=== PATIENT | male | born 1955 | race Caucasian/White ===

== ENCOUNTER 2023-03-09 01:34 | Emergency (ER) | payer BC, SELFPAY ==
--- NOTE | ~2023-03-09 | XR_ITS ---
EXAMINATION: XR FOOT, RIGHT CLINICAL INFORMATION: Pain and swelling. COMPARISON: None available. TECHNIQUE: 3 views of the right foot. FINDINGS: No evidence of acute fracture or subluxation. Findings include small marginal osteophytes of the calcaneocuboid, talonavicular and first tarsometatarsal joints. At the great toe, there is moderate loss of metatarsophalangeal joint space with osteophyte formation. No erosions or periostitis. A very small plantar calcaneal enthesophyte is present. Nonspecific soft tissue swelling throughout the foot without soft tissue gas or radiopaque foreign body. XR/XR foot RT min 3V IMPRESSION: * No acute osseous injury within the right foot. * Nonspecific soft tissue swelling is present. * Moderate osteoarthritis of the great toe metatarsophalangeal joint and mild osteoarthritis at a few other joints. * No radiographic evidence of osteomyelitis.
[2023-03-09 01:48] VITALS: BP 154/96; PULSE 112; O2SAT 96; BMI 35.9
[2023-03-09 02:00] VITALS: BP 124/74; PULSE 104; RESP 18; TEMP 36.8; O2SAT 95
--- OUTSIDE RECORDS SUMMARY | 2023-03-09 02:05 | XMS_ITS | Continuity of Care Document ---
Author Name Unknown Organization [facility] Address [address] [place] [address]- Care Team Providers Care Solderer Name Role Phone Marcelino Vogel MD Primary Care Physician [facility] Date[facility]): 12/30/20 - 01/29/21 [facility] [address] [place], [place] [address] Allergies, Adverse Reactions, Alerts No Known Medication Allergies Immunizations Given and Recorded Vaccine Date Status Refusal Reason pneumococcal 13-valent vaccine 1 12/15/20 Given SARS-CoV-2 (COVID-19) mRNA-1273 vaccine 10/22/20 R ecorded SARS-CoV-2 (COVID-19) mRNA-1273 vaccine 09/24/20 R ecorded influenza virus vaccine, inactivated 2 03/16/20 Re corded pneumococcal 23-valent vaccine 3 12/26/19 Given tetanus/diphtheria/pertussis, acel(Tdap) 4 09/18/19 Given 1Result Comment: [id number] given w/out incident 2Result Comment: done @ [facility] 3Early/Late Reason: Patient Not Available/Off Unit 4Result Comment: PT HANDLED PROCEDURE WELL WITH NO COMPLAINTS. PHYSICIAN GENERAL INTERNAL MEDICINE NDC: 80462-710-23 Medications aspirin 81 mg oral delayed release tablet 81 mg, 1, tablet, By Mouth, Daily, # 30 tablet, Refills 0, Maintenance, 09/18/19 13:18:00 EDT Start Date: 09/18/19 Status: Ordered atorvastatin 10 mg oral tablet 1 tablet = 10 mg, By Mouth, Daily, # 90 tablet, 1 Refills, Maintenance, 09/18/20 16:37:00 EDT, [id number], 175.26, cm, 05/19/20 10:55:00 EST, Height, 93.1, kg, 12/27/19 17:17:00 EDT, Dry Weight Start Date: 09/18/20 Stop Date: 03/17/21 Status: Ordered clobetasol 0.05% topical cream 1 application, Topically, 2 times a day, # 15 Gm, 0 Refills, Maintenance, 12/15/20 13:55:00 EDT, Cream, Partial fill upon patient request if the prescription is for a schedule II opioid drug. Start Date: 12/15/20 Status: Ordered furosemide 20 mg oral tablet 20 mg, 1, tablet, By Mouth, Daily, # 90 tablet, Refills 0, Maintenance, 05/19/20 10:25:00 EST, Partial fill upon patient request Start Date: 05/19/20 Stop Date: 08/17/20 Status: Ordered Metoprolol Tartrate 50 mg oral tablet 1.5 tablet = 75 mg, By Mouth, 2 times a day, # 60 tablet, 0 Refills, Maintenance, 01/07/20 15:06:00EDT, Tablet Start Date: 01/07/20 Stop Date: 02/06/20 Status: Ordered Problem List Condition Effective Dates Status Health Status Inform ant Family history of alcoholism in brother(Confirmed) Active Family history of alcoholism in mother(Confirmed) Active Aortic valve insufficiency(Confirmed) Active Aortic valve stenosis s/p AVR(Confirmed) Active Congestive heart failure(Confirmed) Active Diastolic dysfunctionm, Grad e 1(Confirmed) 1 01/24/20 Active History of alcohol abuse(Confirmed) Active History of aortic valve replacement(Confirmed) 2, 3 12/11/19 Active Hypercholesterolemia(Confirmed) 09/24/19 Active Hyperglycemia(Confirmed) 09/24/19 Active Obesity(Confirmed) Active Osteoarthritis of left knee(Confirmed) Active Psoriasis(Confirmed) Active 1Echo done at [facility] 221mm Inspiris Resilia (Bovine) Valve 3done at [place], [place]
--- OUTSIDE RECORDS SUMMARY | 2023-03-09 02:05 | XMS_ITS | Continuity of Care Document ---
Author Name Unknown Organization [facility] Address [address] [place] [address]- Care Team Providers Care Senior Cost Analyst Name Role Phone Jaspreet BELLE, Marcelino Primary Care Physician [facility]): 05/22/20 - 06/21/20 [facility] [address] [place], [place] [address] Allergies, Adverse Reactions, Alerts No Known Medication Allergies Immunizations Given and Recorded Vaccine Date Status Refusal Reason influenza virus vaccine, inactivated 1 03/16/20 Re corded pneumococcal 23-valent vaccine 2 12/26/19 Given tetanus/diphtheria/pertussis, acel(Tdap) 3 09/18/19 Given 1Result Comment: done @ [facility] 2Early/Late Reason: Patient Not Available/Off Unit 3Result Comment: PT HANDLED PROCEDURE WELL WITH NO COMPLAINTS. HAND SEWER NDC: 22239-844-51 Medications aspirin 81 mg oral delayed release tablet 81 mg, 1, tablet, By Mouth, Daily, # 30 tablet, Refills 0, Maintenance, 09/18/19 13:18:00 EDT Start Date: 09/18/19 Status: Ordered atorvastatin 10 mg oral tablet 1 tablet = 10 mg, By Mouth, Daily, # 30 tablet, 5 Refills, Maintenance, 03/22/20 16:37:00 EDT, [id number], 175.26, cm, 01/07/20 15:01:00 EDT, Height, 93.1, kg, 12/27/19 17:17:00 EDT, Dry Weight Start Date: 03/22/20 Stop Date: 09/18/20 Status: Ordered furosemide 20 mg oral tablet [...] knee(Confirmed) Active Psoriasis(Confirmed) Active 1Echo done at [facility] 221mm Inspiris Resilia (Bovine) Valve 3done at [place], [place]
--- OUTSIDE RECORDS SUMMARY | 2023-03-09 02:05 | XMS_ITS | Continuity of Care Document ---
Author Name Unknown Organization [facility] Address [address] [place] [address]- Care Team Providers Care Chemical Economist Name Role Phone Marcelino Vogel MD Primary Care Physician Encounter [facility] Date(s): 01/02/20 - 02/01/20 [facility] [address] [place] [address]- [facility] Allergies, Adverse Reactions, Alerts No Known Medication Allergies Immunizations Given and Recorded Vaccine Date Status Refusal Reason pneumococcal 23-valent vaccine 1 12/26/19 Given tetanus/diphtheria/pertussis, acel(Tdap) 2 09/18/19 Given 1Early/Late Reason: Patient Not Available/Off Unit 2Result Comment: PT HANDLED PROCEDURE WELL WITH NO COMPLAINTS. [place] ND: 27779-482-95 Medications aspirin 81 mg oral delayed release tablet 81 mg, 1, tablet, By Mouth, Daily, # 30 tablet, Refills 0, Maintenance, 09/18/19 13:18:00 EDT Start Date: 09/18/19 Status: Ordered atorvastatin 10 mg oral tablet 1 tablet = 10 mg, By Mouth, Daily, # 30 tablet, 5 Refills, Maintenance, 09/24/19 16:37:00 EDT Start Date: 09/24/19 Stop Date: 03/22/20 Status: Ordered furosemide 20 mg oral tablet 20 mg, 1, tablet, By Mouth, Daily, # 30 tablet, Refills 0, Tot. Refills 0, Maintenance, 01/01/20 11:03:00 EDT, Route to Pharmacy Electronically, [facility], 175.26, cm, 01/01/20 8:09:00EDT, Height, 93.1, kg, 12/27/19 17:17:00 EDT, Dry W... Start Date: 01/01/20 Status: Ordered Metoprolol Tartrate 50 mg oral tablet 1.5 tablet = 75 mg, By Mouth, 2 times a day, # 60 tablet, 0 Refills, Maintenance, 01/07/20 15:06:00EDT, Tablet Start Date: 01/07/20 Stop Date: 02/06/20 Status: Ordered traMADol 50 mg oral tablet 1 tablet = 50 mg, By Mouth, Every 4 hours, PRN as needed for pain, 0 Refills, Maintenance, 01/06/2015:08:00 EDT, Tablet Start Date: 01/07/20 Status: Ordered Problem List Condition Effective Dates Status Health Status Inform ant Family history of alcoholism in brother(Confirmed) Active Family history of alcoholism in mother(Confirmed) Active Aortic valve insufficiency(Confirmed) Active Aortic valve stenosis s/p AVR(Confirmed) Active Congestive heart failure(Confirmed) Active History of alcohol abuse(Confirmed) Active History of aortic valve replacement(Confirmed) 1, 2 12/11/19 Active Hypercholesterolemia(Confirmed) 09/24/19 Active Hyperglycemia(Confirmed) 09/24/19 Active Obesity(Confirmed) Active Osteoarthritis of left knee(Confirmed) Active Psoriasis(Confirmed) Active 121mm Inspiris Resilia (Bovine) Valve 2done at [place], [place]
--- OUTSIDE RECORDS SUMMARY | 2023-03-09 02:05 | XMS_ITS | Continuity of Care Document ---
Author Name Unknown Organization [facility] Address [address] [place] [address]- Care Team Providers Care Small Animal Veterinarian Name Role Phone Marcelino Vogel MD Primary Care Physician Encounter [facility] Date(s): 01/07/20 - 01/14/20 [facility] [address] [place] [address]- [facility] Encounter Diagnosis Pseudogout(Discharge Diagnosis) - 01/07/20 Attending Physician: Marcelino Vogel MD Allergies, Adverse Reactions, Alerts No Known Medication Allergies Immunizations Given and Recorded Vaccine Date Status Refusal Reason pneumococcal 23-valent vaccine 1 12/26/19 Given tetanus/diphtheria/pertussis, acel(Tdap) 2 09/18/19 Given 1Early/Late Reason: Patient Not Available/Off Unit 2Result Comment: PT HANDLED PROCEDURE WELL WITH NO COMPLAINTS. CASING IN LINE FEEDER NDC: 30860-239-87 Medications aspirin 81 mg oral delayed release [...] 01/01/20 11:03:00 EDT, Route to Pharmacy Electronically, [facility], 175.26, cm, 01/01/20 8:09:00EDT, Height, 93.1, [...] EDT, Tablet Start Date: 01/07/20 Status: Ordered Tylenol 325 mg oral tablet 650 mg, 2, tablet, By Mouth, Every 6 hours, PRN, # 120 tablet, Refills 0, Tot. Refills 0, Acute 01/31/20 12:00:00 EDT, for pain, 01/01/20 11:04:00 EDT, Route to Pharmacy Electronically, [facility], 175.26, cm, 01/01/20 8:09:00 EDT, Heigh... Start Date: 01/01/20 Stop Date: 01/31/20 Status: Ordered Problem List Condition Effective Dates [...] 121mm Inspiris Resilia (Bovine) Valve 2done at [facility], [place] Diagnosis Diagnosis Type Effective Dates Health Status Clini dean Service Informant Pseudogout Discharge Diagnosis 01/07/20 Vital Signs Most recent to oldest [Reference Range]: 1 Height 175.26 cm (01/07/20 3:01 PM) Weight 83.5 kg (01/07/20 3:01 PM) Oxygen Saturation [94-100 %] 99 % (01/07/20 3:01 PM) Pulse Rate [55-90 bpm] 99 bpm *H* (01/07/20 3:01 PM) Body Mass Index [18.5-24.99] 27.18 *H* (01/07/20 3:01 PM) Blood Pressure [90-138/55-84 mm Hg] 124/ 82mm Hg (01/07/20 3:01 PM) Temperature [96.8-100.4 DegF] 98.9 DegF (01/07/20 3:01 PM) Mode of Delivery (Oxygen) Room air (01/07/20 3:01 PM) Blood pressure sites Arm, left (01/07/20 3:01 PM) Temperature Route Temporal (01/07/20 3:01 PM)
--- OUTSIDE RECORDS SUMMARY | 2023-03-09 02:05 | XMS_ITS | Continuity of Care Document ---
Author Name Unknown Organization [facility] Address [address] [place] [address]- Care Team Providers Care Water Team Leader Name Role Phone Jaspreet BELLE, Marcelino Primary Care Physician [facility] Date(s): 05/23/20 - 06/22/20 [facility] [address] [place], [place] [address] Allergies, Adverse Reactions, Alerts No Known Medication Allergies Immunizations Given and Recorded Vaccine Date Status Refusal Reason influenza virus vaccine, inactivated 1 03/16/20 Re corded pneumococcal 23-valent vaccine 2 12/26/19 Given tetanus/diphtheria/pertussis, acel(Tdap) 3 09/18/19 Given 1Result Comment: done @ [facility] 2Early/Late Reason: Patient Not Available/Off Unit 3Result Comment: PT HANDLED PROCEDURE WELL WITH NO COMPLAINTS. MOTOR OPERATOR NDC: 47136-988-96 Medications aspirin 81 mg oral delayed release [...] knee(Confirmed) Active Psoriasis(Confirmed) Active 1Echo done at [facility] 221mm Inspiris Resilia (Bovine) Valve 3done at [place], [place]
--- OUTSIDE RECORDS SUMMARY | 2023-03-09 02:05 | XMS_ITS | Continuity of Care Document ---
Author Name Unknown Organization [facility] Address [address] [place] [address]- Care Team Providers Care Geriatric Social Worker Name Role Phone Marcelino Vogel MD Primary Care Physician [place] [facility] [place]20 - 02/07/20 [facility] [address] [place] [address]- [facility] Allergies, Adverse Reactions, Alerts No Known Medication Allergies Immunizations Given and Recorded Vaccine Date Status Refusal Reason pneumococcal 23-valent vaccine 1 12/26/19 Given tetanus/diphtheria/pertussis, acel(Tdap) 2 09/18/19 Given 1Early/Late Reason: Patient Not Available/Off Unit 2Result Comment: PT HANDLED PROCEDURE WELL WITH NO COMPLAINTS. GLASS PRODUCTS INSPECTOR NDC: 35777-092-23 Medications aspirin 81 mg oral delayed release [...] 01/01/20 11:03:00 EDT, Route to Pharmacy Electronically, [facility], 175.26, cm, 01/01/20 8:09:00EDT, [...] knee(Confirmed) Active Psoriasis(Confirmed) Active 1Echo done at [facility] 221mm Inspiris Resilia (Bovine) Valve 3done at [place], [place]
--- OUTSIDE RECORDS SUMMARY | 2023-03-09 02:05 | XMS_ITS | Continuity of Care Document ---
Author Name Unknown Organization [facility] Address [address] [place] [address]- Care Team Providers Care Labourers Name Role Phone Marcelino Vogel MD Primary Care Physician [place] [facility] 12/10/20 - 12/10/[address] [address]- Discharge Disposition: A-D/C Home Attending Physician: Ortiz Wen MD Admitting Physician: Ortiz Wen MD Referring Physician: Ortiz Wen MD Allergies, Adverse Reactions, Alerts No Known Medication Allergies Immunizations Given and Recorded Vaccine Date Status Refusal Reason influenza virus vaccine, inactivated 1 03/16/20 Re corded pneumococcal 23-valent vaccine 2 12/26/19 Given tetanus/diphtheria/pertussis, acel(Tdap) 3 09/18/19 Given 1Result Comment: done @ [facility] 2Early/Late Reason: Patient Not Available/Off Unit 3Result Comment: PT HANDLED PROCEDURE WELL WITH NO COMPLAINTS. PAPER TESTING SUPERVISOR NDC: 50419-759-95 Medications aspirin 81 mg oral delayed release [...] Date: 09/18/20 Stop Date: 03/17/21 Status: Ordered furosemide 20 mg oral tablet [...] Active Psoriasis(Confirmed) Active 1Echo done at [facility] 221mm Inspiris Resilia (Bovine) Valve 3done at [facility], [place] Vital Signs Most recent to oldest [Reference Range]: 1 2 3 Oxygen Saturation [94-100 %] 97 % (12/10/20 10:08 AM) 92 % *L* (12/10/20 10:00 AM) 98 % (12/10/20 8:58 AM) Pulse Rate [55-90 bpm] 90 bpm (12/10/20 8:58 AM) Blood Pressure [90-138/55-84 mm Hg] 108/68mm Hg (12/10/20 10:08 AM) 92/61mm Hg (12/10/20 10:00 AM) 148/80mm Hg *H* (12/10/20 8:58 AM) Respiratory Rate [16-30 br/min] 20 br/min (12/10/20 10:08 AM) 20 br/min (12/10/20 8:58 AM) Temperature [96.8-100.4 DegF] 98.2 DegF (12/10/20 8:58 AM) Mode of Delivery (Oxygen) Room air (12/10/20 10:08 AM) Room air (12/10/20 10:00 AM) Room air (12/10/20 8:58 AM) Blood pressure sites Arm, left (12/10/20 10:08 AM) Arm, left (12/10/20 10:00 AM) Arm, left (12/10/20 8:58 AM) Temperature Route Tympanic (12/10/20 8:58 AM) Dry Weight 91 kg (12/10/20 8:58 AM)
--- OUTSIDE RECORDS SUMMARY | 2023-03-09 02:05 | XMS_ITS | Continuity of Care Document ---
Author Name Unknown Organization [facility] Reginald lakeisha Address [address] [address]- Care Team Providers Care Client Professional Name Role Phone Oscar Booker MD Primary Care Physician [phone] [place] [facility] [id number] Date(s): 08/15/19 - 08/25/19 [facility] Card[facility] Surgery [address] [address]- [facility] Attending Physician: John Guillory Admitting Physician: John Guillory Referring Physician: John Guillory
--- OUTSIDE RECORDS SUMMARY | 2023-03-09 02:05 | XMS_ITS | Continuity of Care Document ---
Author Name Unknown Organization [facility] Address [address] [place] [address]- Care Team Providers Care Stonehand Name Role Phone Jaspreet BELLE, Marcelino Primary Care Physician [facility] Date(s): 07/24/21 - 08/23/21 [facility] [address] [place], [place] [address] Allergies, Adverse Reactions, Alerts No Known Medication Allergies Immunizations Given and Recorded Vaccine Date Status Refusal Reason SARS-CoV-2 (COVID-19) mRNA-1273 vaccine 06/29/21 R ecorded SARS-CoV-2 (COVID-19) mRNA-1273 vaccine 10/22/20 R ecorded SARS-CoV-2 (COVID-19) mRNA-1273 vaccine 09/24/20 R ecorded influenza virus vaccine, inactivated 04/01/21 Sloan rded influenza virus vaccine, inactivated 1 03/16/20 Re corded influenza virus vaccine, inactivated 03/30/18 Sloan rded influenza virus vaccine, inactivated 04/25/17 Lsoan rded influenza virus vaccine, inactivated 03/13/15 Sloan rded influenza virus vaccine, inactivated 04/05/14 Sloan rded pneumococcal 13-valent vaccine 2 12/15/20 Given pneumococcal 23-valent vaccine 3 12/26/19 Given tetanus/diphtheria/pertussis, acel(Tdap) 4 09/18/19 Given 1Result Comment: [facility] 2Result Comment: [id number] given w/out incident 3Early/Late Reason: Patient Not Available/Off Unit 4Result Comment: PT HANDLED PROCEDURE WELL WITH NO COMPLAINTS. MAGNETIC TAPE TYPEWRITER OPERATOR NDC: 16385-878-98 Medications aspirin 81 mg oral delayed release tablet 81 mg, 1, tablet, By Mouth, Daily, # 30 tablet, Refills 0, Maintenance, 09/18/19 13:18:00 EDT Start Date: 09/18/19 Status: Ordered atorvastatin 10 mg oral tablet 1 tablet, By Mouth, Daily, # 90 tablet, 1 [facility]ills, [facility], [facility], cm, 12/15/20 13:55:00 EDT,Height, 91, kg, 12/10/20 8:58:00 EDT, Dry Weight Start Date: 03/20/21 Status: Ordered clobetasol 0.05% topical cream 1 [...] knee(Confirmed) Active Psoriasis(Confirmed) Active 1Echo done at [facility] 221mm Inspiris Resilia (Bovine) Valve 3done at [place], [place]
--- OUTSIDE RECORDS SUMMARY | 2023-03-09 02:05 | XMS_ITS | Continuity of Care Document ---
Author Name Unknown Organization [facility] Reginald lakeisha Address [address] [place] [address]- Care Team Providers Care Limited Radiology Technician Name Role Phone Not on Staff, PCP Primary Care Physician Unavail able [facility] Date[facility]s): 08/13/19 - 09/14/19 [facility] [address] [place] [address]- [facility] Attending Physician: Scout BELLE, Maddi Cota Referring Physician: Logan Reynoso MD
--- OUTSIDE RECORDS SUMMARY | 2023-03-09 02:06 | XMS_ITS | Continuity of Care Document ---
Author Name Unknown Organization [facility] Address [address] [place] [address]- Care Team Providers Care Project Systems Engineer Name Role Phone Jaspreet BELLE, Marcelino Primary Care Physician [facility] Date(s): 05/22/20 - 06/21/20 [facility] [address] [place], [place] [address] Allergies, Adverse Reactions, Alerts No Known Medication Allergies Immunizations Given and Recorded Vaccine Date Status Refusal Reason influenza virus vaccine, inactivated 1 03/16/20 Re corded pneumococcal 23-valent vaccine 2 12/26/19 Given tetanus/diphtheria/pertussis, acel(Tdap) 3 09/18/19 Given 1Result Comment: done @ [facility] 2Early/Late Reason: Patient Not Available/Off Unit 3Result Comment: PT HANDLED PROCEDURE WELL WITH NO COMPLAINTS. WOOD SCIENCE PROFESSOR NDC: 33539-992-38 Medications aspirin 81 mg oral delayed release [...] Active Psoriasis(Confirmed) Active 1Echo done at [facility] 221mm Inspiris Resilia (Bovine) Valve 3done at [place], [place]
--- OUTSIDE RECORDS SUMMARY | 2023-03-09 02:06 | XMS_ITS | Continuity of Care Document ---
Author Name Unknown Organization [facility] Address [address] [place] [address]- Care Team Providers Care Fisheries Manager Name Role Phone Marcelino Vogel MD Primary Care Physician [facility] Date(s): 02/08/22 - 03/10/22 [facility] [address] [place], [place] [address] Allergies, Adverse Reactions, Alerts No [...] Sloan rded influenza virus vaccine, inactivated 04/25/17 Sloan rded influenza virus vaccine, inactivated 03/13/15 Sloan rded influenza virus vaccine, inactivated 04/05/14 Sloan rded pneumococcal 13-valent vaccine 2 12/15/20 Given pneumococcal 23-valent vaccine 3 12/26/19 Given tetanus/diphtheria/pertussis, acel(Tdap) 4 09/18/19 Given 1Result Comment: [facility] 2Result Comment: [id number] given w/out incident 3Early/Late Reason: Patient Not Available/Off Unit 4Result Comment: PT HANDLED PROCEDURE WELL WITH NO COMPLAINTS. MOVEMENT EDUCATION SPECIALIST NDC: 99785-200-52 Medications aspirin 81 mg oral delayed release tablet 81 mg, 1, tablet, By Mouth, Daily, # 30 tablet, Refills 0, Maintenance, 09/18/19 13:18:00 EDT Start Date: 09/18/19 Status: Ordered atorvastatin 10 mg oral tablet 1 tablet, By Mouth, Daily, # 90 tablet, 1 Refills, [facility], 175, cm, 12/15/20 13:55:00 EDT,Height, 91, kg, 12/10/20 8:58:00 EDT, Dry Weight Start Date: 09/14/21 Status: Ordered clobetasol 0.05% topical cream 1 [...] Date: 05/19/20 Stop Date: 08/17/20 Status: Ordered metoprolol 25 mg oral tablet 25 mg, 1, tablet, By Mouth, 2 times a day, # 60 tablet, Refills 0, Maintenance, 01/18/22 13:52:00 EDT, Partial fill upon patient request if the prescription is for a schedule II opioid drug. Start Date: 01/18/22 Stop Date: 02/17/22 Status: Ordered valsartan 40 mg oral tablet 40 mg, 1, tablet, By Mouth, Daily, # 60 tablet, Refills 0, Maintenance, 01/18/22 13:51:00 EDT, Partial fill upon patient request if the prescription is for a schedule II opioid drug. Start Date: 01/18/22 Status: Ordered Problem List Condition Effective Dates [...] Active Hypercholesterolemia(Confirmed) 09/24/19 Active Hyperglycemia(Confirmed) 09/24/19 Active Obese class I(Confirmed) Active Obesity(Confirmed) Active Osteoarthritis of left knee(Confirmed) Active Psoriasis(Confirmed) Active 1Echo done at [facility] 221mm Inspiris Resilia (Bovine) Valve 3done at , [place] Care Team Personnel Name: Marcelino Vogel MD Address: [address] [place] [address] Adult & Pediatric Medicine [place], [place] [address]
--- OUTSIDE RECORDS SUMMARY | 2023-03-09 02:06 | XMS_ITS | Continuity of Care Document ---
Author Name Unknown Organization [facility] Address [address] [place] [address]- Care Team Providers Care Economics Department Chair Name Role Phone Marcelino Vogel MD Primary Care Physician [facility]s): 07[facility]13[facility]21 - 08/12/21 [facility] [address] [place], [place] [address] Attending Physician: John Guillory Admitting Physician: Admtr, Ar8 Referring Physician: Admtr, Ar8 Allergies, Adverse Reactions, Alerts No Known Medication Allergies Immunizations Given and Recorded Vaccine Date Status Refusal Reason SARS-CoV-2 (COVID-19) mRNA-1273 vaccine 06/29/21 R ecorded SARS-CoV-2 (COVID-19) mRNA-1273 vaccine 10/22/20 R ecorded SARS-CoV-2 (COVID-19) mRNA-1273 vaccine 09/24/20 R ecorded influenza virus vaccine, inactivated 04/01/21 Solan rded influenza virus vaccine, inactivated 1 03/16/20 Re corded influenza virus vaccine, inactivated 03/30/18 Sloan rded influenza virus vaccine, inactivated 04/25/17 Sloan rded influenza virus vaccine, inactivated 03/13/15 Sloan rded influenza virus vaccine, inactivated 04/05/14 Sloan rded pneumococcal 13-valent vaccine 2 12/15/20 Given pneumococcal 23-valent vaccine 3 12/26/19 Given tetanus/diphtheria/pertussis, acel(Tdap) 4 09/18/19 Given 1Result Comment: [facility] 2Result Comment: [id number] given w/out incident 3Early/Late Reason: Patient Not Available/Off Unit 4Result Comment: PT HANDLED PROCEDURE WELL WITH NO COMPLAINTS. HOME DAY CARE PROVIDER NDC: 19794-555-50 Medications aspirin 81 mg oral delayed release tablet 81 mg, 1, tablet, By Mouth, Daily, # 30 tablet, Refills 0, Maintenance, 09/18/19 13:18:00 EDT Start Date: 09/18/19 Status: Ordered atorvastatin 10 mg oral tablet 1 tablet, By Mouth, Daily, # 90 tablet, 1 Refills, [facility], 175, cm, 12/15/20 13:55:00 EDT,Height, 91, kg, [...] knee(Confirmed) Active Psoriasis(Confirmed) Active 1Echo done at [facility] 221mm Inspiris Resilia (Bovine) Valve 3done at [facility], [place] Procedures Procedure Date Related Diagnosis Body Site Status Colonoscopy 1 12/10/20 Completed 110 yr recall
--- OUTSIDE RECORDS SUMMARY | 2023-03-09 02:06 | XMS_ITS | Continuity of Care Document ---
Author Name Unknown Organization [facility] Address [address] [place] [address]- Care Team Providers Care Loading Machine Tool Setter Name Role Phone Marcelino Vogel MD Primary Care Physician Encounter [facility] Date(s): 01/18/22 - 01/25/22 [facility] [address] [place], [place] [address] Attending Physician: Marcelino Vogel MD Allergies, Adverse [...] 1Result Comment: [facility] 2Result Comment: [id number] given w/out incident 3Early/Late Reason: Patient Not Available/Off Unit 4Result Comment: PT HANDLED PROCEDURE WELL WITH NO COMPLAINTS. CIVIL DRAFTER NDC: 75499-564-36 Medications aspirin 81 mg oral delayed release tablet 81 mg, 1, tablet, By Mouth, Daily, # 30 tablet, Refills 0, Maintenance, 09/18/19 13:18:00 EDT Start Date: 09/18/19 Status: Ordered atorvastatin 10 mg oral tablet 1 tablet, By Mouth, Daily, # 90 tablet, 1 Refills, [id number], 175, cm, 12/15/20 13:55:00 EDT,Height, 91, kg, [...] Active Psoriasis(Confirmed) Active 1Echo done at [facility] 221mm Inspiris Resilia (Bovine) Valve 3done at [facility], [place] Vital Signs Most recent to oldest [Reference Range]: 1 2 Height 175 cm (01/18/22 1:59 PM) 175 cm (01/18/22 1:32 PM) Weight 100.9 kg (01/18/22 1:32 PM) Oxygen Saturation [94-100 %] 97 % (01/18/22 1:32 PM) Pulse Rate [55-90 bpm] 85 bpm (01/18/22 1:32 PM) Body Mass Index [18.5-24.99] 32.95 *>HHI* (01/18/22 1:32 PM) Blood Pressure [90-138/55-84 mm Hg] 124/ 74mm Hg (01/18/22 1:59 PM) 118/80mm Hg (01/18/22 1:32 PM) Mode of Delivery (Oxygen) Room air (01/18/22 1:32 PM) Blood pressure sites Arm, left (01/18/22 1:32 PM) Weight Obtained Via Standing scale (01/18/22 1:32 PM)
--- OUTSIDE RECORDS SUMMARY | 2023-03-09 02:06 | XMS_ITS | Continuity of Care Document ---
Author Name Unknown Organization [facility] Address [address] [place] [address]- Care Team Providers Care Machine Operator Assistant Name Role Phone Marcelino Vogel MD Primary Care Physician [facility] [facility] Date([facility]): 03/10/20 - 04/09/20 [facility] [address] [place] [address]- [facility] Allergies, Adverse Reactions, Alerts No Known Medication Allergies Immunizations Given and Recorded Vaccine Date Status Refusal Reason pneumococcal 23-valent vaccine 1 12/26/19 Given tetanus/diphtheria/pertussis, acel(Tdap) 2 09/18/19 Given 1Early/Late Reason: Patient Not Available/Off Unit 2Result Comment: PT HANDLED PROCEDURE WELL WITH NO COMPLAINTS. 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
--- OUTSIDE RECORDS SUMMARY | 2023-03-09 02:06 | XMS_ITS | Continuity of Care Document ---
Author Name Unknown Organization [facility] Address [address] [place] [address]- Care Team Providers Care Projection Printer Name Role Phone Marcelino Vogel MD Primary Care Physician [place] [facility] [place]13[place]21 [place] 07/20/21 [facility] [address] [place], [place] [address] Attending Physician: Marcelino Vogel MD Allergies, Adverse [...] 1Result Comment: [facility] 2Result Comment: [id number] given w/out incident 3Early/Late Reason: Patient Not Available/Off Unit 4Result Comment: PT HANDLED PROCEDURE WELL WITH NO COMPLAINTS. 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 221mm Inspiris Resilia (Bovine) Valve 3done at [place], [place]
--- OUTSIDE RECORDS SUMMARY | 2023-03-09 02:06 | XMS_ITS | Continuity of Care Document ---
Author Name Unknown Organization [facility] Address [address] [place] [address]- Care Team Providers Care Horse Doctor Name Role Phone Not on Staff, PCP Primary Care Physician Unavail able Encounter [facility] Date(s): 08/02/19 - 09/06/19 [facility] [address] [place] [address] Attending Physician: Oscar Booker MD Referring Physician: Logan Reynoso MD
--- OUTSIDE RECORDS SUMMARY | 2023-03-09 02:06 | XMS_ITS | Continuity of Care Document ---
Author Name Unknown Organization [facility] Address [address] [place] [address]- Care Team Providers Care Concrete Tester Name Role Phone Marcelino Vogel MD Primary Care Physician Encounter [facility] [place] Date(s): 12/15/20 - 12/22/20 [facility] [address] [place], [place] [address] Attending Physician: Marcelino Vogel MD Allergies, Adverse Reactions, Alerts No Known Medication Allergies Immunizations Given and Recorded Vaccine Date Status Refusal Reason pneumococcal 13-valent vaccine 1 12/15/20 Given SARS-CoV-2 (COVID-19) mRNA-1273 vaccine 10/22/20 R ecorded SARS-CoV-2 (COVID-19) mRNA-1273 vaccine 09/24/20 R ecorded influenza virus vaccine, inactivated 2 03/16/20 Re corded pneumococcal 23-valent vaccine 3 12/26/19 Given tetanus/diphtheria/pertussis, acel(Tdap) 4 09/18/19 Given 1Result Comment: [id number] given w/out incident 2Result Comment: done @ [facility] 3Early/Late Reason: Patient Not Available/Off Unit 4Result Comment: PT HANDLED PROCEDURE WELL WITH NO COMPLAINTS. 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 NDC: 26829-674-24 Medications aspirin 81 mg oral delayed release tablet 81 mg, 1, tablet, By Mouth, Daily, # 30 tablet, Refills 0, Maintenance, 09/18/19 13:18:00 EDT Start Date: 09/18/19 Status: Ordered atorvastatin 10 mg oral tablet 1 tablet = 10 mg, By Mouth, Daily, # 90 tablet, 1 Refills, Maintenance, 09/18/20 16:37:00 EDT, [facility]/pharmacy #[id number], 175.26, cm, 05/19/20 10:55:00 EST, Height, [...] knee(Confirmed) Active Psoriasis(Confirmed) Active 1Echo done at [facility] 221mm Inspiris Resilia (Bovine) Valve 3done at [place], [place] Vital Signs Most recent to oldest [Reference Range]: 1 Height 175 cm (12/15/20 1:55 PM) Weight 94.0 kg (12/15/20 1:55 PM) Oxygen Saturation [94-100 %] 95 % (12/15/20 1:55 PM) Pulse Rate [55-90 bpm] 93 bpm *H* (12/15/20 1:55 PM) Body Mass Index [18.5-24.99] 30.69 *>HHI* (12/15/20 1:55 PM) Blood Pressure [90-138/55-84 mm Hg] 140/ 82mm Hg *H* (12/15/20 1:55 PM) Temperature [96.8-100.4 DegF] 98.3 DegF (12/15/20 1:55 PM) Mode of Delivery (Oxygen) Room air (12/15/20 1:55 PM) Blood pressure sites Arm, left (12/15/20 1:55 PM) Temperature Route Temporal (12/15/20 1:55 PM)
--- OUTSIDE RECORDS SUMMARY | 2023-03-09 02:06 | XMS_ITS | Continuity of Care Document ---
Author Name Unknown Organization [facility] Address [address] [place] [address]- Care Team Providers Care Cathode Ray Tube Assembler Name Role Phone Marcelino Vogel MD Primary Care Physician [place] [facility] [place](s): 02/17/23 - 02/24/23 [facility] [address] [place], [place] [address] Attending Physician: Marcelino Vogel MD Allergies, Adverse Reactions, Alerts Substance Reaction Severity Status Otezla Diarrhea Headache Active Immunizations Given and Recorded Vaccine Date Status [...] 1Result Comment: [facility] 2Result Comment: [id number] given w/out incident 3Early/Late Reason: Patient Not Available/Off Unit 4Result Comment: PT HANDLED PROCEDURE WELL WITH NO COMPLAINTS. 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/pharm[facility][id number], 175, cm, 02/17/23 13:48:00 EDT, Height Start Date: 02/17/23 Stop Date: 05/12/24 Status: Ordered clobetasol 0.05% topical cream 1 [...] Date: 01/18/22 Stop Date: 02/17/22 Status: Ordered tamsulosin 0.4 mg oral capsule 0.4 mg, 1, capsule, By Mouth, Daily at bedtime, # 30 capsule, Refills 6, Tot. Refills 6, Maintenance, 02/17/23 14:09:00 EDT, Route to Pharmacy Electronically, [facility]/pharmacy #[id number], Partial fill upon patient request if the prescription is for a schedule... Start Date: 02/17/23 Stop Date: 09/15/23 Status: Ordered valsartan 40 mg oral tablet 40 mg, 1, tablet, By Mouth, Daily, # 60 tablet, Refills 0, Maintenance, 01/18/22 13:51:00 EDT, Partial fill upon patient request if the prescription is for a schedule II opioid drug. Start Date: 01/18/22 Status: Ordered Problem List Condition Confirmation Course Effective Dates Status Health Status Informant Family history of alcoholism in brother Confirmed Active Family history of alcoholism in mother Confirmed Active Aortic valve insufficiency Confirmed Active Aortic valve stenosis s/p AVR Confirmed Active Congestive heart failure Confirmed Active Diastolic dysfunctionm, Grade 1 1 Confirmed 01/24/20 Active History of alcohol abuse Confirmed Active History of aortic valve replacement 2, 3 Confirmed 12/11/19 Active Hypercholesterolemia Confirmed 09/24/19 Active Hyperglycemia Confirmed 09/24/19 Active Obesity Confirmed Active Osteoarthritis of left knee Confirmed Active Psoriasis Confirmed Active Severe obesity (BMI 35.0-39.9) with comorbidity Confirmed Active 1Echo done at [facility] 221mm Inspiris Resilia (Bovine) Valve 3done at [facility], [place] Vital Signs Most recent to oldest [Reference Range]: 1 2 Height 175 cm (02/17/23 2:08 PM) 175 cm (02/17/23 1:45 PM) Weight 107.2 kg (02/17/23 1:45 PM) Oxygen Saturation [94-100 %] 100 % (02/17/23 1:45 PM) Pulse Rate [55-90 bpm] 68 bpm (02/17/23 2:08 PM) 100 bpm *H* (02/17/23 1:45 PM) Body Mass Index [18.5-24.99 kg/m2] 35 kg /m2 *>HHI* (02/17/23 1:45 PM) Blood Pressure [90-138/55-84 mm Hg] 120/ 76mm Hg (02/17/23 2:08 PM) 134/78mm Hg (02/17/23 1:45 PM) Mode of Delivery (Oxygen) Room air (02/17/23 1:45 PM) Blood pressure sites Arm, left (02/17/23 2:08 PM) Arm, left (02/17/23 1:45 PM) Note * Elo Escobar: PERFORM, SIGN, VERIFY Event Display: Patient Education/Instruction Authored Date: [id number] [facility] Clinical Summary Name MARY FLORES Age 67 Years 1955 PCP Jaspreet BELLE, Marcelino PCP Visit Date 02/17/2023 13:28:00 Patient Instructions 1. please ask your power plant manager when you see him in April, if you can have a repeat echocardiogram. ??Please ask him also if you are a candidate for SGLT2 inhibitor therapy (e.g. Jardiance 10mg daily.) 2. ??fasting lab work 3. ??close follow up with dermatology Additional Instructions: Scheduled Appointments?? Future Appointments ?No Future Appointments Scheduled Follow-Up Instructions ?? Diagnosis Medications: Please continue your medications until treatment is completed or stopped by your provider. Discuss any questions related to medications with your provider. New Medications [id number], [address], [place] [id number], [phone] Tamsulosin (tamsulosin 0.4 mg oral capsule) 1 capsule Oral Daily at Bedtime for 30 Days. Refills: 6. Next Dose: Medications to Continue Taking That Have Changed [id number], [address], [place] [phone], [phone] - Atorvastatin (atorvastatin 10 mg oral tablet) 1 tab(s) Oral Daily for 90 Days. Refills: 4. Next Dose: Medications to Continue with No Changes These medications were not printed or sent to your pharmacy Aspirin (aspirin 81 mg oral delayed release tablet) 1 tab(s) Oral Daily. Next Dose: Clobetasol Topical (clobetasol 0.05% topical cream) 1 whitney Topically twice a day. Next Dose: Furosemide (furosemide 20 mg oral tablet) 1 tab(s) Oral Daily for 90 Days. Next Dose: Metoprolol (metoprolol 25 mg oral tablet) 1 tab(s) Oral twice a day for 30 Days. Next Dose: Valsartan (valsartan 40 mg oral tablet) 1 tab(s) Oral Daily. Next Dose: Allergy Info:?? Otezla Medications Given This Visit Future Orders ?AST? Order Date:02/17/23?- Complete on or after?02/17/23 ?Hemoglobin A1C (Monitoring)? Order Date:02/17/23?- Complete on or after?02/17/23 ?Thyroid Panel? Order Date:02/17/23?- Complete on or after?02/17/23 ?ALT? Order Date:02/17/23?- Complete on or after?02/17/23 ?B Type Natriuretic Peptide? Order Date:02/17/23?- Complete on or after?02/17/23 ?CBC? Order Date:02/17/23?- Complete on or after?02/17/23 ?Lipid Panel? Order Date:02/17/23?- Complete on or after?02/17/23 ?Basic Metabolic Panel? Order Date:02/17/23?- Complete on or after?02/17/23 Vital Signs Height 175 cm Weight 107.2 kg BMI 35 kg/m2 Blood Pressure 120 mm Hg/76 mm Hg Temperature Pulse Rate 68 bpm Respiratory Rate 02 Sat Mode of Delivery 100 %/Room air You can now view a summary of your hospital visit from the comfort of your home through a free online portal called [employer]. [employer] is a website that allows you to securely view your medical information including discharge summary, medications and follow-up visits. ??You can alsosend a secure electronic message to your doctor???s office to request appointments, renew medications or just ask a question. You can enroll at [email or web address] or register during your next office visit. Disclaimer:?? The information provided is of a general nature and is intended to be used in conjunction with the recommendations and advice of your health care practitioner. ??Every effort has been made to ensure that the information provided is accurate and complete at the time it is provided to you however, as your needs change, or, as new ??information becomes available, different or additional instructions may be required. If you have questions, please consult with your primary care provider or pharmacist, as appropriate. ??This information is not intended to serve as substitution for assessment and evaluation by a qualified health care provider. If you do not have a primary care provider, you may find a [facility] provider by calling [facility] at [phone]. For information about the plan of care including goals and instructions for your diagnosis, please see the patient education orders section of this document. Patient Education Materials?? The content of this educational material or handout may have been modified, supplemented, or adapted from its original content and format to support your individualized medical care. Additional Provider Instructions: 1. please ask your power plant manager when you see him in April, if you can have a repeat echocardiogram. Please ask him also if you are a candidate for SGLT2 inhibitor therapy (e.g. Jardiance 10mg daily.) 2. fasting lab work 3. close follow up with dermatology 4. trial with taking tamsulosin 0.4mg 1 capsule at bedtime. Patient Care team information Care Team Personnel Name: Anna Gallardo Position: S RN Member Role: Primary Care Nurse Name: Lisa David RN Position: S RN Member Role: Primary Care Nurse Name: Marcelino Vogel MD Position: S Physician - Primary Care Member Role: PCP Address: Address: [address] [place] [address] Adult & Pediatric Medicine [place], [place] [address] Name: Mona Garza RN Position: S RN Member Role: Primary Care Nurse Care Team Related Persons Name: TOMMY FLORES Address: [place] [address] Name: LISA FLORES Address: home [address] [place] [id number]
--- OUTSIDE RECORDS SUMMARY | 2023-03-09 02:06 | XMS_ITS | Continuity of Care Document ---
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 Helper Name Role Phone Marcelino Vogel MD Primary Care Physician [place] [facility] [place]24[place] - 01/01/[address] [address]- [facility] Discharge Disposition: Discharged to Hospice-Home (routine care Attending Physician: Mee BELLE, Rosalba Cota Admitting Physician: Tuyet BELLE, Sanjana Referring Physician: Not on Staff, Referring MD Allergies, Adverse Reactions, Alerts No Known Medication Allergies Immunizations Given and Recorded Vaccine Date Status Refusal Reason pneumococcal 23-valent vaccine 1 12/26/19 Given tetanus/diphtheria/pertussis, acel(Tdap) 2 09/18/19 Given 1Early/Late Reason: Patient Not Available/Off Unit 2Result Comment: PT HANDLED PROCEDURE WELL WITH NO COMPLAINTS. 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 Start Date: 01/01/20 Status: Ordered metoprolol 25 mg oral tablet 25 mg, 1, tablet, By Mouth, 2 times a day, Refills 0, Maintenance, 09/18/19 13:19:00 EDT Start Date: 09/18/19 Status: Ordered oxyCODONE 5 mg oral tablet 5 mg, 1, tablet, By Mouth, Every 4 hours, PRN, # 20 tablet, Refills 0, Tot. Refills 0, Acute 01/08/20 12:00:00 EDT, Pain , Moderate, 01/01/20 11:05:00 EDT, Route to Pharmacy Electronically, [facility], Partial fill upon patient request,... Start Date: 01/01/20 Stop Date: 01/08/20 Status: Ordered predniSONE 20 mg oral tablet 2 tablet = 40 mg, By Mouth, Daily, Prednisone 40 mg daily for 2 days, then decrease by 10 mg every 2 days until off, # 20 tablet, 0 Refills, Acute 01/09/20 12:00:00 EDT, 01/01/20 11:06:00 EDT, Tablet, [facility] 3, Prednisone taper 40 mg f... Start Date: 01/01/20 Stop Date: 01/09/20 Status: Ordered Tylenol 325 mg oral tablet 650 mg, 2, tablet, By Mouth, Every 6 hours, PRN, # 120 tablet, Refills 0, Tot. Refills 0, Acute 01/31/20 12:00:00 EDT, for pain, 01/01/20 11:04:00 EDT, Route to Pharmacy Electronically, [facility], 175.26, cm, 01/01/20 8:09:00 EDT, Raminigh... Start Date: 01/01/20 Stop Date: 01/31/20 Status: Ordered Problem List Condition Effective Dates Status Health Status Inform ant Family history of alcoholism in brother(Confirmed) Active Family history of alcoholism in mother(Confirmed) Active Aortic valve insufficiency(Confirmed) Active Aortic valve stenosis(Confirmed) Active Congestive heart failure(Confirmed) Active History of alcohol abuse(Confirmed) Active Hypercholesterolemia(Confirmed) 09/24/19 Active Hyperglycemia(Confirmed) 09/24/19 Active Obesity(Confirmed) Active Osteoarthritis of left knee(Confirmed) Active Psoriasis(Confirmed) Active Results Orders for Microbiology Reports Name Date Anaerobic Culture (ANAEROBIC CULTURE) Sterile Body Fluid Culture W/ Gram Smear (STERILE FLUID CULT.) 12/27/19 Anaerobic Culture 12/26/19 Sterile Body Fluid Culture W/ Gram Smear 12/26/19 Blood Culture 12/24/19 Blood Culture #2 12/24/19 Microbiology Reports TEST:Anaerobic Culture STATUS:Unauthenticated BODY SITE: SOURCE:FLUID COLLECTED DATE/TIME:12/27/19 6:03 PM Anaerobic Culture SPECIMEN DESCRIPTION : FLUID LEFT KNEE SPECIAL REQUESTS : NONE CULTURE : NO ANAEROBES ISOLATED SO FAR. REPORT STATUS : PRELIMINARY REPORT TEST:Sterile Fluid Culture STATUS:Auth (Verified) BODY SITE: SOURCE:FLUID COLLECTED DATE/TIME:12/27/19 6:03 PM Sterile Fluid Culture SPECIMEN DESCRIPTION : FLUID LEFT KNEE SPECIAL REQUESTS : NONE GRAM STAIN : 2+ POLYMORPHONUCLEAR LEUKOCYTES NO ORGANISMS SEEN CULTURE : NO GROWTH 2 DAYS REPORT STATUS : FINAL 12/30/2019 TEST:Anaerobic Culture STATUS:Unauthenticated BODY SITE: SOURCE:ASPIRA COLLECTED DATE/TIME:12/26/19 4:10 PM Anaerobic Culture SPECIMEN DESCRIPTION : ASPIRATE KNEE LT SPECIAL REQUESTS : NONE CULTURE : NO ANAEROBES ISOLATED SO FAR. REPORT STATUS : PRELIMINARY REPORT TEST:Sterile Fluid Culture STATUS:Auth (Verified) BODY SITE: SOURCE:JOINT COLLECTED DATE/TIME:12/26/19 4:10 PM Sterile Fluid Culture SPECIMEN DESCRIPTION : JOINT FLUID SPECIAL REQUESTS : NONE GRAM STAIN : 3+ WHITE BLOOD CELLS NO ORGANISMS SEEN CULTURE : NO GROWTH 2 DAYS REPORT STATUS : FINAL 12/29/2019 TEST:Blood Culture, Second Order STATUS:Auth (Verified) BODY SITE: SOURCE:Blood COLLECTED DATE/TIME:12/24/19 10:44 AM Blood Culture, Second Order SPECIMEN DESCRIPTION : BLOOD RAC SPECIAL REQUESTS : NONE CULTURE : NO GROWTH 5 DAYS. REPORT STATUS : FINAL 12/29/2019 TEST:Blood Culture STATUS:Auth (Verified) BODY SITE: SOURCE:Blood COLLECTED DATE/TIME:12/24/19 10:35 AM Blood Culture SPECIMEN DESCRIPTION : BLOOD LAC SPECIAL REQUESTS : NONE CULTURE : NO GROWTH 5 DAYS. REPORT STATUS : FINAL 12/29/2019 Radiology Reports * Exam Date Time Procedure Performing Provider Status 12/31/19 12:22 PM Chest Portable Ibis Sanchez; Auth (Verified) Notes: (Chest Portable) Reason For Exam: Follow-Up Pleural Effusion RESULT: Chest Portable Chest Portable REASON: Follow-Up Pleural Effusion; Clinical Question(s): Pleural Effusion; Hx of Present Illness: Left shoulder pain after recent cardiac shoulder and sleeping malpositioning. / Pleural Effusion COMPARISON: 12/25/2019 FINDINGS: LINES AND TUBES: None. LUNGS AND PLEURA: Right lung and pleural space are clear. Decreased left pleural effusion with improved aeration in the left base. No pneumothorax. HEART, MEDIASTINUM AND NEVILLE: Unchanged. BONES AND SOFT TISSUES: No acute abnormality. Status-post median sternotomy. IMPRESSION: Small residual left pleural effusion and underlying airspace opacity, likely atelectasis. Findings are improved from the prior exam. WSN: [id number] Ordering Physician: Rosalba Caban Dictated By: Jose Armando Cleaning MD Dictated Date/Time: 12/31/19 12:26 p Reviewed By: Jose Armando Cleaning MD Signed By: Jose Armando Cleaning MD Signed Date/Time: 12/31/19 12:26 pm Transcribed By: PUJA Transcribed Date/Time: 12/31/19 12:26 pm * Exam Date Time Procedure Performing Provider Status 12/26/19 3:32 PM Knee 3 Views Left Crissy Sanford; Au th (Verified) Notes: (Knee 3 Views Left) Reason For Exam: Pain RESULT: Knee 3 Views Left Knee 3 Views Left Reason: Pain; Clinical Question(s): Other:; effusion; Hx of Present Illness: Left shoulder pain after recent cardiac shoulder and sleeping malpositioning. COMPARISON: None. FINDINGS: Severe tricompartmental osteoarthritis with joint space narrowing and extensive osteophytosis. Suprapatellar joint effusion. No evidence of fracture or dislocation. IMPRESSION: Severe tricompartmental osteoarthritis. Suprapatellar joint effusion. WSN: [id number] Ordering Physician: Nayeli Cedeño Dictated By: Ramiro Cuevas MD Dictated Date/Time: 12/26/19 3:34 pm Reviewed By: Ramiro Cuevas MD Signed By: Ramiro Cuevas MD Signed Date/Time: 12/26/19 3:34 pm Transcribed By: PUJA Transcribed Date/Time: 12/26/19 3:33 pm * Exam Date Time Procedure Performing Provider Status 12/25/19 8:58 AM Chest 2 Views Frontal and Lat Kingston Webster (Verified) Notes: (Chest 2 Views Frontal and Lat) Reason For Exam: Fever/Increased White Count RESULT: Chest 2 Views Frontal and Lat Chest 2 Views Frontal and Lat AP upright 9:01 AM INDICATION: Leukocytosis COMPARISON: 12/24/2019 FINDINGS: LINES AND TUBES: None. LUNGS AND PLEURA: Low lung volumes. Mild basilar atelectasis. Persistent small left pleural effusion with adjacent airspace opacity. Persistent trace right pleural effusion No pneumothorax. HEART, MEDIASTINUM AND NEVILLE: Heart is normal in size. There is a prosthetic aortic valve. BONES AND SOFT TISSUES: No acute abnormality. Median sternotomy. IMPRESSION: Persistent small bilateral pleural effusions, greater on the left than the right. Underlying left basilar airspace opacity may be due to atelectasis or pneumonia but is also unchanged. I have personally reviewed the images and I agree with this report. WSN: [id number] Ordering Physician: Sanjana Benz Dictated By: Keyla Rose MD Dictated Date/Time: 12/25/19 2:18 pm Reviewed By: Jose Armando Cleaning MD Signed By: Jose Armando Cleaning MD Signed Date/Time: 12/25/19 2:23 pm Transcribed By: PUJA Transcribed Date/Time: 12/25/19 1:42 pm * Exam Date Time Procedure Performing Provider Status 12/24/19 8:16 AM Chest Portable Freddy Kennedy (Verified) Notes: (Chest Portable) Reason For Exam: S/P Cardiac Surgery RESULT: Chest Portable AP supine portable chest dated December 24, 2019 at 0752 hours. No prior studies are available. HISTORY: Status post cardiac surgery. FINDINGS: The cardiac silhouette is at the upper limits of normal for size. The patient is status post median sternotomy. There are small bilateral pleural effusions left greater than right. There isalso some airspace infiltrate the left lung base likely atelectasis although pneumonia cannot be excluded. IMPRESSION: Small bilateral pleural effusions left greater than right with some associated atelectasis or pneumonia on the left. Examination [id number]. Thank you for allowing me to participate in the care of this patient. WSN: [id number] Ordering Physician: Katie Snyder Dictated By: Jose Luis Bowen MD Dictated Date/Time: 12/24/19 8:47 am Reviewed By: Jose Luis Bowen MD Signed By: Jose Luis Bowen MD Signed Date/Time: 12/24/19 8:47 am Transcribed By: PUJA Transcribed Date/Time: 12/24/19 8:47 am * Exam Date Time Procedure Performing Provider Status 12/24/19 8:16 AM Shoulder Min 2 Views Left Marie Kennedy; Chrissy (Verified) Notes: (Shoulder Min 2 Views Left) Reason For Exam: Pain RESULT: Shoulder Min 2 Views Left Left shoulder 2 views. INDICATION: Left shoulder pain after recent cardiac shoulder and sleeping malpositioning. COMPARISON: Chest x-ray 12/24/2019. FINDINGS: No fracture or dislocation. Mild degenerative changes of the AC joint with amorphous calcific density. The portion of the clavicle included on the exam is normal. Mild bone formation of the inferior glenoid. Visualized lungs are clear. Median sternotomy wires are present. IMPRESSION: No acute osseous abnormality. Degenerative changes of the shoulder predominantly involving the acromioclavicular joint. I have personally reviewed the images and I agree with this report. WSN: [id number] Ordering Physician: Katie Snyder Dictated By: Lydia Mendoza MD Dictated Date/Time: 12/24/19 8:53 am Reviewed By: Derek Turner MD Signed By: Derek Turner MD Signed Date/Time: 12/24/19 8:58 am Transcribed By: PUJA Transcribed Date/Time: 12/24/19 8:23 am Vital Signs Most recent to oldest [Reference Range]: 1 2 3 Height 175.26 cm (01/01/20 11:28 AM) 175.26 cm (01/01/20 8:09 AM) 175.26 cm (01/01/20 5:37 AM) Weight 86.2 kg (12/31/19 9:00 AM) 86 kg (12/30/19 6:12 PM) 89.7 kg (12/29/19 9:30 AM) Oxygen Saturation [94-100 %] 94 % (01/01/20 11:28 AM) 98 % (01/01/20 8:09 AM) 96 % (01/01/20 5:37 AM) Pulse Rate [55-90 bpm] 74 bpm (01/01/20 11:28 AM) 74 bpm (01/01/20 8:09 AM) 80 bpm (01/01/20 5:37 AM) Body Mass Index [18.5-24.99] 29.2 *H* (12/29/19 5:28 AM) 31.25 *>HHI* (12/28/19 6:15 AM) 30.31 *>HHI* (12/27/19 5:17 PM) Blood Pressure [90-138/55-84 mm Hg] 119/55mm Hg (01/01/20 11:28 AM) 131/61mm Hg (01/01/20 8:09 AM) 120/65mm Hg (01/01/20 5:37 AM) Respiratory Rate [16-30 br/min] 18 br/min (01/01/20 11:28 AM) 17 br/min (01/01/20 8:09 AM) 20 br/min (01/01/20 5:37 AM) Temperature [96.8-100.4 DegF] 98 DegF (01/01/20 11:28 AM) 98.3 DegF (01/01/20 5:37 AM) 98.1 DegF (12/31/19 11:21 PM) Liters per Minute 2 L/min (12/24/19 8:39 PM) 2 L/min (12/24/19 6:32 PM) 2 L/min (12/24/19 2:30 PM) Mode of Delivery (Oxygen) Room air (01/01/20 11:28 AM) Room air (01/01/20 8:09 AM) Room air (01/01/20 5:37 AM) Blood pressure sites Arm, right (01/01/20 11:28 AM) Arm, right (01/01/20 8:09 AM) Arm, left (01/01/20 5:37 AM) Temperature Route Oral (01/01/20 11:28 AM) Oral (01/01/20 5:37 AM) Oral (12/31/19 11:21 PM) Dry Weight 93.1 kg (12/27/19 5:17 PM) 93.4 kg (12/25/19 8:03 PM) Weight Obtained Via Bed scale (12/31/19 9:00 AM) Bed scale (12/29/19 5:28 AM) Bed scale (12/28/19 6:15 AM)
--- NOTE | 2023-03-09 03:51 | PC.NURSE ---
Daughter reported pt is unable to say her name when asked, Dr. Hassan in to assess pt
[2023-03-09 03:56] VITALS: BP 121/71; PULSE 104; RESP 20; TEMP 36.8; O2SAT 98
[2023-03-09 05:48] VITALS: BP 126/73; PULSE 97; RESP 18; TEMP 36.7; O2SAT 96
--- NOTE | 2023-03-09 06:36 | ED.GENADULT ---
HPI - General Adult General Chief complaint: Extremity Injury, Lower Stated complaint: WEAKNESS,GOUT FLARE PER EMS Time Seen by Provider: 03/09/23 06:35 Source: patient, EMS, RN notes reviewed and old records reviewed Mode of arrival: EMS History of Present Illness HPI narrative: 67-year-old male with past medical history of gout, presenting to the ED complaining atraumatic right foot pain, swelling, and erythema x3 days. Denies known injury/trauma fall. Denies numbness, tingling, weakness, pedal edema, SOB. Reports pain is prohibiting him from sleeping. Onset (ago): day(s) Related Data Previous Rx's Medication Instructions Recorded cephalexin 500 mg capsule 500 mg PO QID 7 days #28 caps 03/09/23 oxycodone-acetaminophen 5 mg-325 1 tab PO Q8H PRN pain (scale score 03/09/23 mg tablet (Percocet) 7-10) 3 days #9 tabs prednisone 20 mg tablet 40 mg PO DAILY 5 days #10 tabs 03/09/23 Allergies Allergy/AdvReac Type Severity Reaction Status Date / Time No Known Allergies Allergy Verified 03/09/23 06:49 Review of Systems Review of Systems: Constitutional: No Fever, No Chills, No Fatigue, No Malaise ENT/Mouth: No Ear Pain, No Nasal Congestion, No sore throat, No Rhinorrhea, No Swallowing Difficulty Eyes: No Eye Pain, No Swelling, No Redness Cardiovascular: No Chest Pain, No SOB, No Edema, No Palpitations Respiratory: No Cough, No Sputum, No Dyspnea Gastrointestinal: No Nausea, No Vomiting, No Diarrhea, No Constipation, No Abdominal pain Musculoskeletal: + joint pain, No Myalgias, + Joint Swelling Skin: No Skin Lesions, No rash Neuro: No Weakness, No Numbness, No Paresthesias, NNo Headache Yes all other systems are reviewed and are negative Constitutional: Constitutional: Reports as per [facility] Past Medical History Attestation statement: The following information was validated with the patient. Source: old records reviewed Social History Social History Alcohol intake: never Smoked in Last 30 Days: No Use of substances other than those prescribed or required for medical reasons: No Advance Directives: No Advance Directives Information Provided: No Physical Exam ED Vital Signs: Vital Signs - 24 hr 03/09/23 02:00 03/09/23 03:56 03/09/23 05:48 Temperature 98.2 F 98.2 F 98.1 F Pulse Rate 104 H 104 H 97 Respiratory Rate 18 20 18 Blood Pressure 124/74 121/71 126/73 Pulse Oximetry 95 98 96 Oxygen Delivery Method Room Air Room Air Room Air 03/09/23 07:00 03/09/23 08:39 Temperature Pulse Rate 94 93 Respiratory Rate 16 16 Blood Pressure 131/68 123/64 Pulse Oximetry 96 96 Oxygen Delivery Method Room Air Room Air BMI result Body Mass Index 35.9 Const General: cooperative, healthy appearing and no acute distress Orientation/consciousness: patient oriented x3 Limitations: no limitations HENMT Head: Yes normal to inspection and Yes atraumatic Ears: hearing grossly normal bilaterally General nose exam: Normal external nose present Face and sinus: Yes normal facial exam Eyes General: appearance normal, both eyes and all related structures EOM: EOMs intact bilaterally Neck Neck: Yes normal visual inspection and Yes no meningeal signs Resp Effort & Inspection: normal respiratory effort and no respiratory distress Auscultation: clear to auscultation bilaterally Cardio Rate: regular rate Heart sounds: S1 normal heart sound present and S2 normal heart sound present Skin Rashes: no rashes Wounds: no wounds Neuro General: patient oriented x3, tone normal and no meningeal signs Cranial nerves: Yes CN's II-XII intact bilaterally Gait exam (Neuro): Normal gait present Extrem Other: Right foot > 1st MTP with noted diffuse swelling/erythema and warmth, exquisitely tender to palpation. Neurovascularly intact. No crepitus or wound. No fluctuance/induration. Limited ROM to ankle and foot secondary to pain. No pitting edema or calf tenderness Course Course Course Narrative: -913--no leukocytosis. CRP mildly elevated. -uric acid elevated XR foot RT min 3V IMPRESSION: *? No acute osseous injury within the right foot. *? Nonspecific soft tissue swelling is present. *? Moderate osteoarthritis of the great toe metatarsophalangeal joint and mild osteoarthritis at a few other joints. *? No radiographic evidence of osteomyelitis. > will treat patient empirically for cellulitis and as suspected gouty flare. Results discussed with patient including worrisome signs and symptoms and strict return precautions, and when to return to the emergency department. They verbalized understanding and feel safe for discharge at this time. -patient reports he cannot take NSAIDs, unclear why does have history of valve replacement not currently on anticoagulation Medications Administered Discontinued Medications Generic Name Dose Route Start Last Admin Trade Name Stuart PRN Reason Stop Dose Admin Oxycodone HCl 5 mg 03/09/23 06:49 03/09/23 06:57 Oxycodone Hcl Immed Release 5 Mg Tablet PO 03/09/23 06:50 5 mg ONCE ONE Administration Medical Decision Making Medical Decision Making [facility] Narrative: 67-year-old male with past medical history of gout, presenting to the ED complaining atraumatic right foot pain, swelling, and erythema x3 days. On exam initially tachycardic likely from pain, NAD, nontoxic appearing, physical exam as noted above. Concern for gout vs cellulitis. Lower suspicion for septic joint/arthritis at this time no evidence of abscess. Unlikely DVT or necrotizing infection. Plan: Labs, x-ray, pain management Please refer to course for remaining clinical decision making, interpretation of labs/imaging results, and discussions with consultants and/or family members. Differential Diagnosis Differential Diagnoses: The differential diagnosis associated with the presentation includes As above Admission/Observation Consideration of admission/observation: Escalation of care including admission/observation considered Lab Data [facility] Lab Attestation statement: I reviewed the patient's lab results. 03/09/23 07:07 03/09/23 07:07 Labs: Lab Results 03/09/23 03/09/23 03/09/23 Range/Units 07:07 07:07 07:07 WBC 9.2 (4.8-10.8) X10*3/uL RBC 4.33 L (4.60-5.80) X10*6/uL Hgb 12.9 L (14.0-18.0) g/dl Hct 39.8 L (42.0-52.0) % MCV 91.9 (80.0-98.0) fL MCH 29.8 (27.0-33.0) pg MCHC 32.4 (31.0-36.0) g/dl RDW 12.8 (11.0-16.0) % Plt Count 194 (160-400) X10*3/uL MPV 11.2 (9.4-12.4) fL Immature Gran % (Auto) 0.2 (0.0-0.4) % Neut % (Auto) 79.8 H (45-73) % Lymph % (Auto) 11.1 L (20-40) % Armstrong % (Auto) 7.9 (2-11) % Eos % (Auto) 0.8 (0-4) % Baso % (Auto) 0.2 (0-2) % Lymph # (Auto) 1.0 L (1.2-4.9) X10*3/uL Armstrong # (Auto) 0.7 (0.1-1.2) X10*3/uL Eos # (Auto) 0.1 (0.0-0.4) X10*3/uL Baso # (Auto) 0.0 (0.0-0.2) X10*3/uL Abs Immat Gran (auto) 0.02 (0.00-0.03) X10*3/uL Absolute Neuts (auto) 7.4 (2.0-8.3) x10*3/uL Absolute Nucleated RBC 0.000 (0.0-0.012) X10*3/uL Nucleated RBC % (auto) 0.0 (0.0-0.2) /100WBC ESR 13 (0-15) MM/HR Sodium 143 (135-145) mmol/L Potassium 4.0 (3.3-5.1) mmol/L Chloride 108 (96-108) mmol/L Carbon Dioxide 24 (22-29) mmol/L Anion Gap 15 (12-20) BUN 18 H (9-16) mg/dL Creatinine 0.88 (0.5-1.4) mg/dL Estim Creat Clear Calc 99.7 Estimated GFR > 60 Random Glucose 116 H (60-115) mg/dL Uric Acid 8.8 H (3.4-7.0) mg/dL Calcium 9.6 (8.4-10.2) mg/dL C-Reactive Protein 2.26 H (< or = 0.50) mg/dL Radiology Impression Discussion of test interpretation with radiology: I have reviewed the radiologist's reading. External Record Review External record reviewed: Inpatient record, Office record, Outpatient record, Prior outpatient labs, Prior outpatient radiology, Primary care record and Outside ED record Tests considered The following testing was considered but not selected: As above Prescription Management I considered prescription management with: Pain Medication and Antibiotic Discharge Plan Discharge Clinical Impression: Gout, Cellulitis Patient Disposition: Home, Self-Care Instructions: Cellulitis (DC), Low Purine Diet (ED), Gout (ED) Additional Instructions: Your blood work is reassuring Your x-ray shows osteoarthritis as well as nonspecific swelling We suspect you have gout Prednisone as a steroid which help with gout flare/inflammation Percocet will help with pain, this is an opiate pain medication, take only when pain is severe for the next 3 days Follow-up with her doctor Francis as an antibiotic please take as prescribed Is symptoms persist or worsen, redness/swelling persist or worsen/pain becomes unbearable return to the ED Prescriptions: New cephalexin 500 mg capsule 500 mg PO QID 7 Days Qty: 28 0RF prednisone 20 mg tablet 40 mg PO DAILY 5 Days Qty: 10 0RF oxycodone-acetaminophen [Percocet] 5-325 mg tablet 1 tab PO Q8H PRN (Reason: pain (scale score 7-10)) 3 Days Qty: 9 0RF Rx Instructions: Partial Fill upon patient request. Referrals: Marcelino Vogel MD [Primary Care Provider] - 3 days Stand Alone Forms: Work/School Release
[2023-03-09] MEDS: oxyCODONE HCl Immed Release 5 MG TABLET PO (06:57)
[2023-03-09 07:00] VITALS: BP 131/68; PULSE 94; RESP 16; O2SAT 96
--- NOTE | 2023-03-09 07:09 | MHC.EDTECH ---
Labs collected and sent
[2023-03-09 07:12] LABS: MANUAL DIFF FLAG NO
[2023-03-09 07:13] LABS: Basophils Percent Auto 0.2 % (0-2); Eosinophils Absolute Auto 0.1 X10*3/uL (0.0-0.4); Eosinophils Percent Auto 0.8 % (0-4); Hematocrit 39.8 % (42.0-52.0); Hemoglobin 12.9 g/dl (14.0-18.0); Imm Gran Abs Auto 0.02 X10*3/uL (0.00-0.03); Imm Gran Pct Auto 0.2 % (0.0-0.4); Lymphocytes Percent Auto 11.1 % (20-40); Mean Corpuscular HGB Conc 32.4 g/dl (31.0-36.0); Mean Corpuscular Hemoglobin 29.8 pg (27.0-33.0); Mean Corpuscular Volume 91.9 fL (80.0-98.0); Mean Platelet Volume 11.2 fL (9.4-12.4); Monocytes Absolute Auto 0.7 X10*3/uL (0.1-1.2); Monocytes Percent Auto 7.9 % (2-11); Neutrophils Absolute Auto 7.4 x10*3/uL (2.0-8.3); Neutrophils Percent Auto 79.8 % (45-73); Platelet Count 194 X10*3/uL (160-400); Red Blood Count 4.33 X10*6/uL (4.60-5.80); Red Cell Distribution Width 12.8 % (11.0-16.0); White Blood Count 9.2 X10*3/uL (4.8-10.8)
[2023-03-09 07:28] LABS: Anion Gap 15 (12-20); Blood Urea Nitrogen 18 mg/dL (9-16); C Reactive Protein 2.26 mg/dL (< or = 0.50); Calcium 9.6 mg/dL (8.4-10.2); Carbon Dioxide 24 mmol/L (22-29); Chloride 108 mmol/L (96-108); Creatinine Clr Calc Pharmacy 99.7; Estimated Glomerular Filt Rate > 60; Glucose Random 116 mg/dL (60-115); Sodium 143 mmol/L (135-145); Uric Acid 8.8 mg/dL (3.4-7.0)
[2023-03-09 08:01] LABS: Erythrocyte Sedimentation Rate 13 MM/HR (0-15)
[2023-03-09 08:39] VITALS: BP 123/64; PULSE 93; RESP 16; O2SAT 96
--- NOTE | 2023-03-09 08:40 | PC.NURSE ---
pt axox4, respirations even and unlabored, sats 96% RA, vss, skin wpd. pt reporting R. foot pain x 1 day. pt denies new injury. hx gout. RLE +2 pitting edema; + pedal pulses BLE; slight weakness noted of RLE, warm to touch. redness noted near R. great toe. awaiting further orders; pt denies questions/concerns. call rosario within reach.
== END 2023-03-09 10:00 | disposition home or self-care (01) ==
PROVIDERS: Physician Assistant; Emergency Provider Emergency Medicine; PCP Internal Medicine
DX: M10.071 Idiopathic gout, right ankle and foot (principal); L03.115 Cellulitis of right lower limb
CPT/HCPCS: 36415; 73630; 80048; 84550; 85025; 85652; 86140; 99283; 99284